=== PATIENT | female | born 1960 | race Two or more races ===

== ENCOUNTER → 2023-01-08 | Day surgery (SDC) | payer OTHER | END | disposition home or self-care (01) | LOC: FMAMMOTONE 09:05 | PROVIDERS: ATTEND Surgery | PROC: 0HBU3ZX Excision of Left Breast, Percutaneous Approach, Diagnostic (ICD-10-PCS; principal; 2023-01-08) | DX: N64.89 Other specified disorders of breast (principal); R92.8 Other abnormal and inconclusive findings on diagnostic imaging of breast | CPT/HCPCS: 19081; 19082; 76098-TC-FY; 87899; 88305-TC; 88313-TC; 88342-TC; A4648 ==